=== PATIENT | male | born 1990 | race Caucasian/White ===

== ENCOUNTER 2021-06-18 20:05 | Emergency (ER) | payer MEDICAID ==
[~2021-06-18] VITALS: Ht 167.6 cm; Wt 100.0 kg
[2021-06-18] MEDS ORDERED: acetaminophen 325mg tablet PO ONE ×2 (20:30→20:45)
[2021-06-18] MEDS ORDERED: ondansetron 4mg rapidly disintigrating tab PO ONE (22:10)
[2021-06-18 23:14] VITALS: BP 112/92
== END 2021-06-18 23:19 | disposition home or self-care (01) ==
LOC: ER 20:05
DX: J10.1 Influenza due to other identified influenza virus with other respiratory manifestations (principal); Z20.822 Contact with and (suspected) exposure to COVID-19; R05.9 Cough, unspecified; R11.10 Vomiting, unspecified; R50.9 Fever, unspecified
CPT/HCPCS: 87502; 87503; 87635; 99283; C9803